=== PATIENT | female | born 1985 | race Caucasian/White ===

== ENCOUNTER → 2019-11-15 | Outpatient (CLI) | payer OTHER ==
--- NOTE | 2019-11-15 14:38 | RAD ---
DATE: 11/15/2019 12:50 PM EXAM: DIGITAL DIAGNOSTIC LT HISTORY: Patient is 34 years old and had baseline screening in February 2019. This is a six-month follow-up of a probably benign asymmetry in the posterior central left breast on outside diagnostic imaging. Patient reports a family history of breast cancer in her mother in her 60s. . COMPARISON: Left diagnostic mammogram of 03/15/2019 and bilateral screening mammogram of 03/07/2019 TECHNIQUE: Left CC and MLO views were obtained with 2-D technique and spot compression views were also performed. Spot compression views in the CC and MLO projections were obtained in the general areas that were previously evaluated with mammography.. This study was interpreted with the benefit of Computerized Aided Detection (CAD). FINDINGS: Breast Density: HETERO The breast parenchyma Is heterogeneously dense, which could reduce sensitivity of mammography. Breast parenchyma level C No suspicious masses, microcalcifications or architectural distortion is present to suggest malignancy in the left breast. IMPRESSION: No mammographic evidence of malignancy. BI-RADS CATEGORY: 1 NEGATIVE RECOMMENDED FOLLOW-UP: 12M 12 MONTH FOLLOW-UP Age-appropriate annual screening mammography is recommended, unless otherwise clinically indicated based on symptoms , change in physical exam, or risk profile. Discussed with patient. PQRS compliance statement: Patient information was entered into a reminder system with a target due date for the next mammogram. Mammography is a sensitive method for finding small breast cancers, but it does not detect them all and is not a substitute for careful clinical examination. A negative mammogram does not negate a clinically suspicious finding and should not result in delay in biopsying a clinically suspicious abnormality. "Our facility is accredited by the [employer] Mammography [employer]."
== END | disposition home or self-care (01) ==
LOC: MAMMO 12:48
PROVIDERS: ATTEND Family Medicine
DX: R92.2 Inconclusive mammogram (principal)
CPT/HCPCS: 77065

== ENCOUNTER → 2021-06-16 | Outpatient (CLI) | payer OTHER ==
--- NOTE | 2021-06-16 09:49 | RAD ---
Digital bilateral screening mammogram with tomography dated 06/16/2021. INDICATION: 35 years of age asymptomatic female patient presents for screening mammography. TECHNIQUE: Full field craniocaudal and mediolateral oblique images of both breasts were obtained usi ng digital technique with tomosynthesis and also analyzed with computer-aided detection software. . COMPARISON: 03/07/2019 .. BREAST COMPOSITION: Category C: The breast tissue is heterogeneously dense, which could obscure detec tion of small masses. FINDINGS: There are 3 circumscribed nodules in the right breast that were not definitely present previously. Th e largest is located medially near about the 3:00 position measuring 1.6 cm. The other 2 are located near the 6:00 position and are smaller in size. No architectural distortion or suspicious clustered c alcification. The left breast is stable. IMPRESSION: There are 3 new circumscribed nodules in the right breast, indeterminate. Compression vie ws and ultrasound better evaluate. RECOMMENDATION: Annual screening mammography is recommended, unless clinically indicated sooner based on symptoms or change in physical exam. BIRADS 0: INCOMPLETE - NEED ADDITIONAL IMAGING EVALUATION AND/OR PRIOR MAMMOGRAMS FOR COMPARISON. This study was interpreted with the benefit of Computerized Aided Detection (CAD). Recommend compression views and ultrasound for better evaluation. Patient information is entered into the reminder system with a target due date for the next screening mammogram. Mammography is the most sensitive method for finding small breast cancers, but it does not detect the m all and is not a substitute for careful clinical examination. A negative mammogram does not negate a clinically suspicious finding and should not result in delay in biopsying a clinically suspicious a bnormality. "Our facility is accredited by the [employer] Mammography [employer]." Electronically signed by: Denilson Carney MD (06/16/2021 9:47 AM) [id number]
== END ==
LOC: MAMMO 07:51
PROVIDERS: ATTEND Family Medicine
DX: Z12.31 Encounter for screening mammogram for malignant neoplasm of breast (principal)
CPT/HCPCS: 77063; 77067

== ENCOUNTER → 2021-07-13 | Outpatient (CLI) | payer OTHER ==
--- NOTE | 2021-06-23 17:50 | RAD ---
EXAMINATION: MG DIAGNOSTICUNILAT MAMMO, US BREAST RT History: 35-year-old woman with family history of breast cancer, recalled from screening mammogram fo r right breast nodules. Comparison: 06/16/2021 and 11/15/2019. Technique: Spot compression views of the right breast were obtained. Subsequent right breast ultrasou nd was performed of concern. Findings: Breast Tissue Density C : The breasts are heterogeneously dense, which may obscure small masses. A 1. 1 cm nodule in the medial right breast persists on spot compression. The 2 nodules seen on screening mammogram at 6:00 are less conspicuous on spot compression. Ultrasound of the right breast at 3:00 and 6:00 was performed: At 3:00 8 cm from the nipple, there is a 1.4 x 0.9 x 1.2 cm anechoic simple cyst with circumscribed m argins and through transmission. This corresponds with the largest nodule at 3:00 on mammogram. At 3:00 8 cm from the nipple, there is a 0.5 x 0.5 x 0.4 cm hypoechoic mass with slightly indistinct margins. This has some through transmission and is most likely a complicated cyst or clustered microc ysts. At, 6:00 6 cm from the nipple, there is an ovoid hypoechoic mass measuring 8 x 3 x 7 mm. This has a f atty hilum and is likely a lymph node. At 6:00 8 cm from the nipple, there is an ovoid hypoechoic circumscribed mass measuring 6 x 3 x 3 mm. This has circumscribed margins and is parallel in orientation, likely, a complicated cyst or cluster ed microcysts. No suspicious lymph nodes in the right axilla. IMPRESSION: Two probably benign hypoechoic masses at 3:00 7 cm from the nipple and 6:00 8 cm from the nipple. The se are likely complicated cysts or clustered microcysts. A third hypoechoic mass at 6:00 6 cm from th e nipple is likely a lymph node. Recommend 6 month follow-up right breast ultrasound of these masses to ensure stability. BI-RADS category 3: Probably benign. RECOMMENDATION: Six-month follow-up right breast ultrasound. The images were reviewed with computer aided detection. Patient information is entered into the reminder system with a target due date for the next screening mammogram. Mammography is the most sensitive method for finding small breast cancers, but it does not detect the m all and is not a substitute for careful clinical examination. A negative mammogram does not negate a clinically suspicious finding and should not result in delay in biopsying a clinically suspicious a bnormality. "Our facility is accredited by the [employer] Mammography [employer]." Electronically signed by: Yoli Whyte MD (06/23/2021 5:47 PM) [id number]
== END ==
LOC: US 10:00
PROVIDERS: ATTEND Family Medicine
DX: N63.13 Unspecified lump in the right breast, lower outer quadrant (principal); N63.14 Unspecified lump in the right breast, lower inner quadrant; N60.01 Solitary cyst of right breast
CPT/HCPCS: 76641; 77065